=== PATIENT | female | born 1955 | race Caucasian/White ===

== ENCOUNTER → 2017-08-16 | Outpatient (CLI) | payer OTHER | END | disposition home or self-care (01) | LOC: LABWHC1 10:21 | PROVIDERS: ATTEND Orthopaedic Surgery | DX: E55.9 Vitamin D deficiency, unspecified (principal) | CPT/HCPCS: 36415; 82306 ==

== ENCOUNTER → 2020-05-18 | Outpatient (CLI) | payer MEDICARE ==
--- NOTE | 2020-05-18 08:52 | CTL ---
EXAMINATION TYPE: CT Low Dose Lung DATE OF EXAM ORDERED: 05/18/2020 HISTORY: . Lung cancer screening CT DLP: mGycm CT CTDI: mGy Automated exposure control for dose reduction was used. SCREENING VISIT: COMPARISON: None TECHNIQUE: Low dose computed tomography scan was performed through the chest at 1 mm thick sections a nd reconstructed images in the coronal plane at [address] DIAGNOSTIC QUALITY: Satisfactory FINDINGS: LUNGS: There is biapical pleural thickening. Diffuse changes of COPD noted. No consolidative pneumonia, pleural effusion or pneumothorax. Linear changes involving the peripheral margin of the superior segment right lower lobe extending to the pleural surface likely related atel ectasis. There is a calcified granuloma in bilateral upper lobe. Basilar subsegmental consolidation most likel y in the basis of atelectasis. Heart size normal. Mild atherosclerotic change of the aorta. Hypertrophic changes of the spine with v ertebral body hemangioma incidentally noted. Mild coronary artery calcification. IMPRESSION: 1. COPD. 2. Bilateral calcified granuloma. CT LUNG RAD AND CT CHEST RECOMMENDATION: 2 S Modifier (other clinically significant findings): None
== END | disposition home or self-care (01) ==
LOC: RADCTMAIN 08:27
PROVIDERS: ATTEND Family Medicine
DX: Z12.2 Encounter for screening for malignant neoplasm of respiratory organs (principal); F17.210 Nicotine dependence, cigarettes, uncomplicated; J44.9 Chronic obstructive pulmonary disease, unspecified
CPT/HCPCS: 71271

== ENCOUNTER → 2020-05-27 | Outpatient (CLI) | payer MEDICARE ==
--- NOTE | 2020-05-27 16:28 | BD ---
EXAMINATION TYPE: Axial Bone Density DATE OF EXAM: 05/27/2020 COMPARISON: NONE CLINICAL HISTORY: 64 YR OLD FEMALE....ICD-10 CODE: [id number] OTHER DISORDER OF BONE Height: 59.2 Weight: 118 FRAX RISK QUESTIONS: History of Fracture in Adulthood: YES Secondary Osteoporosis: YES 1. Type 1 Diabetes: 2. Hyperthyroidism: YES 3. Menopause before 45: YES Current Tobacco Use: YES RISK FACTORS HISTORY OF: HX OF LT FOOT FX....2 YRS AGO History of Wrist Fracture: LT WRIST AND HAND IN HER 20s Postmenopausal woman: YES, AT AGE 34 YRS OLD, NATURALLY Take estrogen and/or progesterone medications: PROVERA FOR ABOUT 5 YRS Lost more than 2 inches in height since high school: YES Hyperparathyroidism: NO Adrenal Insufficiency: NO MEDICATIONS: Osteoporosis Medications: EVISTA, FOR ABOUT 5 YRS, IN THE PAST, NONE NOW Additional Medications: VIT D AND CALCIUM SUPPLEMENTS Additional History: OSTEOPOROSIS, EARLY ONSET MENOPAUSE EXAM MEASUREMENTS: Bone mineral densitometry was performed using the [employer] System. Bone mineral density as measured about the Lumbar spine is: ----- L1-L4(G/cm2): 0.708 T Score Values are as follows: ----- L1: -4.4 ----- L2: -4.4 ----- L3: -3.7 ----- L4: -3.5 ----- L1-L4: -3.9 Bone mineral density FIRST BONE DENSITY AT [facility] Bone mineral density about the R hip (g/cm2): 0.780 Bone mineral density about the L hip (g/cm2): 0.764 T Score values are as follows: -----R Neck: -2.1 -----L Neck: -2.5 -----R Total: -1.8 -----L Total: -1.9 Bone mineral density FIRST DEXA STUDY AT [facility] FRAX%s: THERE IS A 11.7% CHANCE FOR A MAJOR OSTEOPOROTIC FX AND A 5.0% FOR HIP......PROBABILITY FO R FX IN 10 YRS TIME IMPRESSION: Osteoporosis (T Score less than -2.5). There is increased fracture risk and therapy is usually indicated based on age. Re-Screen 1-2 years. NOTE: T-SCORE=SD OF THE YOUNG ADULT MEAN.
--- NOTE | 2020-05-30 11:43 | MM ---
Reason for exam: screening (asymptomatic). Last mammogram was performed 18 years and 6 months ago. History: Patient is postmenopausal. Family history of breast cancer in 2 maternal aunts at age 50, premenopausal breast cancer in mother at age 40, and breast cancer in maternal grandmother at age 50. Physical Findings: A clinical breast exam by your physician is recommended on an annual basis and results should be correlated with mammographic findings. MG 3D Screening Mammo W/Cad Bilateral CC and MLO view(s) were taken. No prior studies available for comparison. The breast tissue is heterogeneously dense. This may lower the sensitivity of mammography. Finding #1: There is a 5 mm obscured round mass in the upper outer quadrant, posterior, middle position of the right breast. Finding #2: There are round calcifications in both breasts. ASSESSMENT: Incomplete: need additional imaging evaluation, BI-RAD 0 RECOMMENDATION: Ultrasound of the right breast. [facility] will attempt to contact patient to return for ultrasound.
== END ==
LOC: RADMAMWWP 09:01
PROVIDERS: ATTEND Family Medicine
DX: Z12.31 Encounter for screening mammogram for malignant neoplasm of breast (principal); M81.0 Age-related osteoporosis without current pathological fracture; Z78.0 Asymptomatic menopausal state; Z80.3 Family history of malignant neoplasm of breast
CPT/HCPCS: 77063; 77067; 77080

== ENCOUNTER → 2020-06-06 | Outpatient (CLI) | payer MEDICARE ==
--- NOTE | 2020-06-07 07:47 | USB ---
Reason for exam: additional evaluation requested from abnormal screening. History: Patient is postmenopausal. Family history of breast cancer in 2 maternal aunts at age 50, premenopausal breast cancer in mother at age 40, and breast cancer in maternal grandmother at age 50. Took estrogen for 5 years. Physical Findings: Nurse did not find any significant physical abnormalities on exam. US Breast Workup Limited RT Technologist: Vikki Rico Right limited breast ultrasound including focal area of concern, retroareolar and axilla demonstrates a 0.2 x 0.2 x 0.1cm circular lesion too small to characterize at 10 o'clock and a 0.6 x 0.6 x 0.3cm oval, cystic lesion at 11 o'clock, may correspond to the mammographic finding. 6 month follow up mammogram recommended. Scanned 9-12 o'clock. These results were verbally communicated with the patient and result sheet given to the patient on 06/06/20. ASSESSMENT: Probably benign, BI-RAD 3 RECOMMENDATION: Follow-up diagnostic mammogram of the right breast in 6 months.
== END ==
LOC: RADUSWWP 14:39
PROVIDERS: ATTEND Family Medicine
DX: N60.01 Solitary cyst of right breast (principal); Z78.0 Asymptomatic menopausal state; Z80.3 Family history of malignant neoplasm of breast